=== PATIENT | female | born 1950 | race Caucasian/White ===

== ENCOUNTER → 2016-09-30 | Outpatient (CLI) | payer OTHER ==
[~2016-09-30] MED LIST: ACET-1256 PO; ACET-24 PO; ALPR-411 PO; ASPEC81 PO; BECL0.072 INH; CLB/200 PO; CLB200 PO; DICLOFENAC PO; FRRG PO; IBUP-1050 PO; LISI-729 PO; Levalbuterol INH; MISCCAP80 PO; MISOPROSTOL PO; MULT-506 PO; OMEP40CA36 PO; PRT40 PO; RXC5 PO; SERT100T PO; TRAM-10 PO; TURMERIC PO; XPNIN INH
--- NOTE | 2016-09-30 15:37 | MAMMOGRAPHY REPORT ---
BILATERAL DIGITAL SCREENING MAMMOGRAM WITH CAD: 09/30/2016 CLINICAL HISTORY: Routine screening. Patient has no complaints. TECHNIQUE: Bilateral CC and MLO views were obtained. Current study was also evaluated with a Comput er Aided Detection (CAD) system. COMPARISON: Comparison is made to exams dated: 02/01/2015 mammogram, 06/09/2012 mammogram, 09/13/2013 aspiration, 08/26/2013 mammogram, 05/14/2011 mammogram - [facility], and 02/03/2009. BREAST COMPOSITION: The tissue of both breasts is almost entirely fatty. FINDINGS: There are stable benign-appearing punctate and rim calcifications in the breasts. Stable 5 mm nodular asymmetry in the superior left breast. No new suspicious mass, architectural distortio n or cluster of microcalcifications is seen. IMPRESSION: ACR BI-RADS CATEGORY 1: NEGATIVE There is no mammographic evidence of malignancy. A 1 year screening mammogram is recommended. The p atient will receive written notification of the results. Approximately 10% of breast cancers are not detected with mammography. A negative mammographic repor t should not delay biopsy if a clinically suggestive mass is present. Jaymie Ross M.D. ay/:09/30/2016 14:14:36 Lacquer Machine Feeder: Reggie TREJO(Cait)(Sabrina), [facility] letter sent: Normal 1/2 BI-RADS Code: ACR BI-RADS Category 1: Negative
== END | disposition home or self-care (01) ==
LOC: C.MAMM 10:09
PROVIDERS: ATTEND Obstetrics & Gynecology
DX: Z12.31 Encounter for screening mammogram for malignant neoplasm of breast (principal)

== ENCOUNTER 2017-05-21 09:45 | Inpatient (IN) | payer OTHER ==
--- NOTE | 2017-04-22 13:54 | PAT Medication Instructions ---
Service Date Apr 22, 2017. Current Home Medication List Acetaminophen (Tylenol), 1,000 MG PO PRN Alprazolam (Xanax), 0.5 MG PO PRN Celecoxib (CeleBREX), 200 MG PO PRN Ibuprofen (Advil), 400 MG PO PRN Levalbuterol Tartrate (Xopenex Hfa), 1 PUFF INH Q4H PRN for wheeezing Lisinopril (Prinivil), 5 MG PO QAM Multivitamin (Multivitamin), 1 TAB PO for M Omeprazole (Prilosec), 40 MG PO QAM Probiotic Product (Probiotic), 2 TAB PO QAM Sertraline Hcl (Zoloft), 150 MG PO QAM [Diclofenac-Misopro], 1 TAB PO PRN [Turmeric], 1 TAB PO QAM Medication Instructions For Your Scheduled Surgery - Check with surgeon for instructions: [Diclofenac-Misopro], 1 TAB PO PRN Celecoxib (CeleBREX), 200 MG PO PRN Ibuprofen (Advil), 400 MG PO PRN - Hold the following medications 2 weeks prior to surgery: [Turmeric], 1 TAB PO QAM - Hold the following medications the morning of surgery: Lisinopril (Prinivil), 5 MG PO QAM Multivitamin (Multivitamin), 1 TAB PO for M Probiotic Product (Probiotic), 2 TAB PO QAM - Take the following medications the morning of surgery with a sip of water: Sertraline Hcl (Zoloft), 150 MG PO QAM Omeprazole (Prilosec), 40 MG PO QAM Levalbuterol Tartrate (Xopenex Hfa), 1 PUFF INH Q4H PRN for wheeezing (if needed ) Acetaminophen (Tylenol), 1,000 MG PO PRN (if needed) Alprazolam (Xanax), 0.5 MG PO PRN (if needed) - Take the following medications as scheduled the night before surgery: Levalbuterol Tartrate (Xopenex Hfa), 1 PUFF INH Q4H PRN for wheeezing (if needed) Acetaminophen (Tylenol), 1,000 MG PO PRN (if needed) Alprazolam (Xanax), 0.5 MG PO PRN (if needed) If you have any questions please call us at [phone] or [phone] or [phone]
[2017-04-22 14:16] LABS: BASO % 0.3 %; BASO ABS # 0.02 K/uL (0-0.2); COMPLETE YES; EOS % 1.5 %; HEMATOCRIT 42.4 % (37-47); IG% 0.6 %; LYMPH % 24.3 %; LYMPH ABS # 1.75 K/uL (1.2-3.4); MEAN CELL VOLUME 91.6 fL (80-100); MEAN CORPUSCULAR HEMOGLOBIN 30.9 pg (25-34); MEAN CORPUSCULAR HGB CONC 33.7 g/dl (32-36); MEAN PLATELET VOLUME 9.9 fL (7.4-10.4); NEUT % 67.3 %; PLATELET COUNT 274 K/uL (130-400); RED BLOOD COUNT 4.63 M/uL (4.2-5.4); WHITE BLOOD COUNT 7.21 K/uL (4.8-10.8)
[2017-04-22 14:20] LABS: URINE APPEARANCE CLEAR (CLEAR); URINE BILIRUBIN NEG (NEG); URINE COLOR YELLOW; URINE NITRITE NEG (NEG); URINE SPECIFIC GRAVITY 1.015 (1.000-1.030); UROBILINOGEN NEG (NEG); ZZUR CULT IF INDIC CLEAN CATCH NO
[2017-04-22 14:21] LABS: MANUAL MICROSCOPIC REQUIRED? NO; REVIEW REQ? NO
--- NOTE | 2017-04-22 14:23 | DIAGNOSTIC IMAGING REPORT ---
CHEST 2 VIEWS ROUTINE CLINICAL HISTORY: 66 years-old Female presenting with preadmission chest x-ray. TECHNIQUE: PA and lateral views of the chest were obtained. COMPARISON: 11/09/2012. FINDINGS: Cardiomediastinal silhouette normal. Lungs and pleural spaces clear. Osseous structures normal. Upper abdomen normal. IMPRESSION: 1. No acute cardiopulmonary disease. Electronically signed by: Boston Castro M.D. 04/22/2017 2:21 PM Dictated Date/Time: 04/22/2017 2:21 PM
[2017-04-22 14:30] LABS: PROTHROMBIN TIME (PATIENT) 10.7 SECONDS (9.0-12.0)
[2017-04-22 15:11] LABS: BUN/CREATININE RATIO 14.8 (10-20); CALCIUM 9.1 mg/dl (8.5-10.1); CREATININE 0.88 mg/dl (0.60-1.20); POTASSIUM 4.7 mmol/L (3.5-5.1)
[2017-04-23 07:33] LABS: ESTIMATED AVERAGE GLUCOSE 114 mg/dl; HA1C FLAG Normal (Normal)
--- NOTE | 2017-05-20 17:17 | HISTORY & PHYSICAL EXAMINATION ---
DATE OF ADMISSION: 05/21/2017 CHIEF COMPLAINT: Chronic left knee pain. HISTORY OF PRESENT ILLNESS: This is a 67-year-old female patient of Dr. Castro, complaining of chronic left knee pain, longstanding, now progressively getting worse. The patient has been diagnosed with end-stage osteoarthritis per clinical and radiographic exams. The patient has failed conservative treatment including anti-inflammatories, physical therapy, and intra-articular injections. The patient has increased pain with weightbearing activities and her pain does interfere with her activities of daily living. PAST MEDICAL HISTORY: Heart murmur, hypertension, hypercholesterolemia, irregular heartbeat, asthma, sleep apnea, anxiety, osteoarthritis, spine problems, neck problems, sciatica, acid reflux, obesity, and dental issues. She has a history of cervical and skin cancer. SOCIAL HISTORY: Half pack per day smoker for a lifelong 20 years, currently not smoking for 20 yrs. Alcohol, none. PAST SURGICAL HISTORY: Hysterectomy and gallbladder. MEDICATIONS: 1. Lisinopril 5 mg daily. 2. Zoloft 100 mg daily. 3. Prilosec 20 mg daily. 4. Levalbuterol 45 mcg per actuation 2 puffs p.r.n. for shortness of breath. 5. Xanax 0.5 mg as needed. 6. QVAR 40 mcg actuation inhaler b.i.d. as needed. 7. Multivitamin daily. 8. Probiotic daily. 9. Turmeric daily. 10. [place] 3 daily. ALLERGIES: No known drug allergies. PHYSICAL EXAMINATION: GENERAL: Well-developed and well-nourished 67-year-old female in no acute distress. She is alert and oriented x3 and pleasant. HEENT: Normocephalic, atraumatic. Extraocular motions are intact. Pupils are equal and reactive to light. HEART: Regular rate and rhythm with a 1/6 murmur appreciated. LUNGS: Clear. ABDOMEN: Soft and nontender. Bowel sounds present. EXTREMITIES: Left knee reveals positive crepitation with range of motion, limited range of motion of 0-125 degrees. She has a mild effusion. She has 5/5 strength. NEUROLOGIC: Neurovascularly, she is intact in her left lower extremity with medial joint line tenderness. DIAGNOSES: Left knee end-stage osteoarthritis. She has also a history of heart murmur, hypertension, hypercholesterolemia, irregular heartbeat, asthma, sleep apnea, anxiety, osteoarthritis, spine problems, neck problems, sciatica, acid reflux, obesity, dental issues, and a history of cervical and skin cancer. PLAN: The patient was advised of her diagnoses. Indications, risks, benefits, and postop course have all been reviewed. The patient wishes to proceed with a left total knee arthroplasty. Necessary consent forms, preoperative testing and clearances will be obtained. ANDREZ
[~2017-05-21] VITALS: Ht 162.6 cm; Wt 71.9 kg
[2017-05-21] VITALS (7 sets, daily range): BP systolic 113–155; BP diastolic 71–95; PULSE 77–90; TEMP 36.3–37.1; O2SAT 93–97; Ht 162.6 cm; Wt 71.9 kg
[~2017-05-21 09:45] MED LIST changes: -ACET-24 PO; +ACETAMINOPHEN 500 MG TAB PO SCH; -ASPEC81 PO; -BECL0.072 INH; +BUPIVACAINE 0.25% 30 ML VIAL ONE; +BUPIVACAINE 0.5 % 5 MG/1 ML PF 10ML VIAL ONE; +CEFAZOLIN 2000 MG/60 ML D5W 60 ML IV SCH; -CLB200 PO; +CeleBREX 200 MG CAP PO SCH; +DEXAMETHASONE 4 MG TAB PO SCH; +FAMOTIDINE 20 MG TAB PO SCH; -FRRG PO; +GABAPENTIN 300 MG CAP PO SCH; +LACTATED RINGER'S 1000ML 1,000 ML IV SCH; +LACTATED RINGER'S 1000ML 500 ML IV ONE; +LACTATED RINGER'S 1000ML IV SCH; -Levalbuterol INH; +METOCLOPRAMIDE HCL 10 MG TAB PO SCH; -PRT40 PO; +ROPIVACAINE 5MG/ML 30 ML 150 MG, BUPIVACAINE/EPINEPHR 0.5% MPF 30 ML, KETOROLAC TROMETH... INFIL SCH; -RXC5 PO; -TRAM-10 PO
[2017-05-21] MEDS ORDERED: FENTANYL CITRATE INJ 50 MCG/1 ML 2 ML VIAL ONE (11:09)
[2017-05-21] MEDS ORDERED: MIDAZOLAM HCL 1 MG/ML 2ML VIAL ONE ×2 (11:09→13:24)
[2017-05-21] MEDS ORDERED: ATROPINE SULFATE 0.1 MG/ML 5ML SYR IV PRN (11:15)
[2017-05-21] MEDS ORDERED: ONDANSETRON INJ 2 MG/ML 2 ML VIAL IV PRN ×2 (11:15→15:30)
[2017-05-21] MEDS ORDERED: FENTANYL CITRATE INJ 50 MCG/1 ML 2 ML VIAL IV PRN (11:15)
[2017-05-21] MEDS ORDERED: EpHEDrine SULFATE INJ 50 MG/ML AMP IV PRN (11:15)
--- NOTE | 2017-05-21 11:41 | History & Physical Bridge Note ---
H&P Re-Evaluation Bridge Note: I have examined the patient, reviewed the History & Physical and in the interval since the performance of the History & Physical I have noted the following changes of clinical significance: No changes noted
[2017-05-21] MEDS ORDERED: POVIDONE-IODINE OP SOLN 30 ML BTL ONE (12:01)
[2017-05-21] MEDS ORDERED: ORTHO JOINT ANESTHETIC ONE (12:01)
[2017-05-21] MEDS ORDERED: BACITRACIN 50000 UNIT VIAL ONE (12:01)
[2017-05-21] MEDS ORDERED: PROPOFOL IV EMULSION 10 MG/ML 20 ML VIAL IV ONE ×2 (13:24→14:11)
[2017-05-21] MEDS ORDERED: ONDANSETRON INJ 2 MG/ML 2 ML VIAL ONE (13:24)
[2017-05-21] MEDS ORDERED: LIDOCAINE HCL 2% 2 ML VIAL (20MG/ML) ONE (13:24)
--- NOTE | 2017-05-21 14:52 | [facility] Post Operative Brief Note ---
Immediate Operative Summary Operative Date May 21, 2017. Pre-Operative Diagnosis Left knee end-stage osteoarthritis Post-Operative Diagnosis Left knee end-stage osteoarthritis Procedure(s) Performed Left total knee arthroplasty, cemented Surgeon Dr. Castro Network Developer Surgeon(s) Ventura Toro PA-C Estimated Blood Loss 5 mL Findings medial compartment and patellofemoral djd grade 4.varus. Specimens A: Left knee bone and tissue Drains 2 hemovac Anesthesia spinal adductor block orthomix Complication(s) None Disposition Recovery Room / PACU
[2017-05-21] MEDS ORDERED: LEValbuterol HFA 15GM INHALER INH PRN (15:30)
[2017-05-21] MEDS ORDERED: ALUMINUM/MAGNESIUM/SIMETH (MAALOX MAX) 30 ML UDC PO PRN (15:30)
[2017-05-21] MEDS ORDERED: BISACODYL 10 MG SUPP PR PRN (15:30)
[2017-05-21] MEDS ORDERED: TRAMADOL HCL 50 MG TAB PO PRN (15:30)
[2017-05-21] MEDS ORDERED: MAGNESIUM HYDROXIDE SUSP 30 ML UDC PO PRN (15:30)
[2017-05-21] MEDS ORDERED: MoRPHine SULFATE 2 MG/ML CARP IV PRN (15:30)
[2017-05-21] MEDS ORDERED: MoRPHine SULFATE 4 MG/ML 1 ML CARP\\VIAL IV PRN (15:30)
[2017-05-21] MEDS ORDERED: ALPRAZOLAM 0.5 MG TAB PO PRN (15:30)
--- NOTE | 2017-05-21 15:48 | Anesthesiology Progress Note ---
Anesthesia Post Op Note Date & Time May 21, 2017 at 15:48 Vital Signs Pain Intensity: 0 Vital Signs Past 12 Hours Date Time Temp Pulse Resp B/P (MAP) Pulse Ox O2 Delivery O2 Flow Rate FiO2 05/21/17 15:35 87 18 128/86 97 Oxymask 3 05/21/17 15:25 36.5 100 16 131/82 96 Oxymask 5 05/21/17 10:06 36.9 90 16 155/95 96 Room Air Notes Mental Status: alert / awake / arousable, participated in evaluation Pt Amnestic to Procedure: Yes Nausea / Vomiting: adequately controlled Pain: adequately controlled Airway Patency, RR, SpO2: stable & adequate BP & HR: stable & adequate Hydration State: stable & adequate Neuraxial Anesthesia: was administered, sensory block is resolving Anesthetic Complications: no major complications apparent
--- NOTE | 2017-05-21 16:09 | DIAGNOSTIC IMAGING REPORT ---
L KNEE 1 OR 2 VIEWS ROUTINE CLINICAL HISTORY: AP/LATERAL IN PACU LEFT KNEE COMPARISON: None. DISCUSSION: Anatomic alignment status post total left knee replacement. Good contact between prosthetic and underlying bone. Soft tissue postoperative change is within normal limits. IMPRESSION: Anatomic alignment status post total left knee replacement. The above report was generated using voice recognition software. It may contain grammatical, syntax or spelling errors. Electronically signed by: Ricardo Cochran M.D. 05/21/2017 4:08 PM Dictated Date/Time: 05/21/2017 4:07 PM
[2017-05-21] MEDS ORDERED: TRAM-10 PO (16:41)
[2017-05-21] MEDS ORDERED: COUGH DROP (SUGAR FREE) LOZ 24 LOZ/1 BOX PO PRN (16:45)
[2017-05-21] MEDS: TRANEXAMIC ACID INJ 1,000 MG in SODIUM CHLORIDE 0.9% 100ML 100 ML IV SCH ×2 (16:53→16:54)
--- NOTE | 2017-05-21 16:59 | Medical Consult ---
Consultation Date of Consultation: May 21, 2017. Attending Physician: Neal Castro M.D. Reason for Consultation: postop medical management History of Present Illness Patient seen and examined after undergoing L TKA today by Dr. Castro. She is doing well, only complains of sore throat after procedure. Not having postop pain yet. Sensory block is still in effect. Denies dizziness, chest pain, SOB, wheezing, cough, N/V. Did not void yet after procedure. Last BM was yesterday. Past Medical/Surgical History Medical Problems: (1) Asthma Status: Chronic (2) Basal cell carcinoma of nose Permanent Comment: required Rx in past, but not recently Status: Resolved (3) Carcinoma of cervix Status: Resolved (4) Essential hypertension Status: Resolved (5) Gastroesophageal reflux disease Status: Chronic (6) Helicobacter pylori gastrointestinal tract infection Status: Resolved (7) s/p cholecystectomy Status: Resolved (8) s/p colonoscopy Status: Resolved (9) s/p EGD Status: Resolved (10) s/p hysterectomy Status: Resolved (11) s/p tonsillectomy Status: Resolved Family History FH: lung cancer MOTHER SISTER Social History Smoking Status: Former Smoker (quit in 1992, prior 1/2 ppd x 15 years) Alcohol Use: occasionally Marital Status: single Housing Status: lives alone Allergies Coded Allergies: No Known Allergies (Unverified , 05/21/17) Home Medications Active Reported Ultram (Tramadol HCl) 50 Mg Tab 50 Mg PO Q6H PRN CeleBREX (Celecoxib) 200 Mg Cap 200 Mg PO PRN Advil (Ibuprofen) 200 Mg Tab 400 Mg PO PRN Tylenol (Acetaminophen) 500 Mg Tab 1,000 Mg PO PRN [Turmeric] 1 Tab PO QAM Probiotic (Probiotic Product) 1 Cap Cap 2 Tab PO QAM Multivitamin (Multivitamins) Tab 1 Tab PO DAILY [Diclofenac-Misopro] 1 Tab PO PRN DICLOFENAC-MISOPROSTOL 75-0.2 MG Prinivil (Lisinopril) 5 Mg Tab 5 Mg PO QAM Xopenex Hfa (Levalbuterol Tartrate) Aer 1 Puff INH Q4H PRN Prilosec (Omeprazole) 40 Mg Cap 40 Mg PO QAM Zoloft (Sertraline Hcl) 100 Mg Tab 150 Mg PO QAM Xanax (Alprazolam) 0.5 Mg Tab 0.5 Mg PO DAILY PRN Current Inpatient Medications Current Inpatient Medications Medications (Trade) Dose Ordered Sig/Rupali Route Start Time Stop Time Status Last Admin Dose Admin Lactated Ringer's 1,000 ml @ 60 mls/hr [id number] IV 05/21/17 06:00 05/21/17 22:39 05/21/17 10:23 60 MLS/HR Cefazolin Sodium 60 ml @ 100 mls/hr PREOP IV 05/21/17 06:00 05/21/17 18:00 05/21/17 13:16 100 MLS/HR Acetaminophen (Tylenol Tab) 1,000 mg PREOP PO 05/21/17 06:00 05/21/17 18:00 05/21/17 10:25 1,000 MG Celecoxib (CeleBREX CAP) 200 mg PREOP PO 05/21/17 06:00 05/21/17 18:00 05/21/17 10:25 200 MG Dexamethasone (Decadron Tab) 8 mg PREOP PO 05/21/17 06:00 05/21/17 18:00 05/21/17 10:24 8 MG Famotidine (Pepcid Tab) 20 mg PREOP PO 05/21/17 06:00 05/21/17 18:00 05/21/17 10:26 20 MG Gabapentin (Neurontin Cap) 300 mg PREOP PO 05/21/17 06:00 05/21/17 18:00 05/21/17 10:24 300 MG Metoclopramide HCl (Reglan Tab) 10 mg PREOP PO 05/21/17 06:00 05/21/17 18:00 05/21/17 10:24 10 MG Tranexamic Acid 1000 mg/Sodium Chloride 110 ml @ 660 mls/hr TODAY@06,0630 IV 05/21/17 06:00 05/21/17 18:00 Lactated Ringer's 1,000 ml @ 15 mls/hr Q24H IV 05/21/17 06:00 05/22/17 05:59 Alprazolam (Xanax Tab) 0.5 mg TID PRN PO 05/21/17 15:30 06/20/17 15:29 UNV Levalbuterol (Xopenex Hfa Inhaler) 1 puffs Q4H PRN INH 05/21/17 15:30 06/20/17 15:29 UNV Lisinopril (Zestril Tab) 5 mg QAM PO 05/22/17 09:00 06/21/17 08:59 UNV Sertraline HCl (Zoloft Tab) 150 mg QAM PO 05/22/17 09:00 06/21/17 08:59 UNV Non-Formulary Medication (Probiotic Product (Probiotic)) 2 tab QAM PO 05/22/17 09:00 06/21/17 08:59 UNV Morphine Sulfate (MoRPHine SULFATE INJ) 2 mg Q4HWA PRN IV 05/21/17 15:30 06/04/17 15:29 UNV Morphine Sulfate (MoRPHine SULFATE INJ) 4 mg Q4HWA PRN IV 05/21/17 15:30 06/04/17 15:29 UNV Potassium Chloride/Dextrose/ Sod Cl 1,000 ml @ 100 mls/hr Q10H IV 05/21/17 15:26 05/22/17 15:25 UNV Cefazolin Sodium 2000 mg/Dextrose 60 ml @ 100 mls/hr Q8H IV 05/21/17 15:30 05/22/17 00:05 UNV Celecoxib (CeleBREX CAP) 200 mg BID PO 05/21/17 21:00 06/20/17 20:59 UNV Oxycodone HCl (Roxicodone Immediate Rel Tab) 1 TABLET FOR PAIN RATING... Q4H PRN PO 05/21/17 15:30 06/04/17 15:29 UNV Acetaminophen (Tylenol Tab) 1,000 mg Q8H PO 05/21/17 15:30 06/20/17 15:29 UNV Magnesium Hydroxide (Milk Of Magnesia Susp) 30 ml Q6H PRN PO 05/21/17 15:30 06/20/17 15:29 UNV Bisacodyl (Dulcolax Supp) 10 mg DAILY PRN GA 05/21/17 15:30 06/20/17 15:29 UNV Senna (Senokot Tab) 17.2 mg HS PO 05/21/17 21:00 06/20/17 20:59 UNV Docusate Sodium (coLACE CAP) 100 mg BID PO 05/21/17 21:00 06/20/17 20:59 UNV Al Hydrox/Mg Hydrox/Simethicone (Maalox Max Susp) 15 ml Q4H PRN PO 05/21/17 15:30 06/20/17 15:29 UNV Multivitamins (Multivitamin Tab) 1 tab QAM PO 05/22/17 09:00 06/21/17 08:59 UNV Ondansetron HCl (Zofran Inj) 4 mg Q6H PRN IV 05/21/17 15:30 06/20/17 15:29 UNV Ferrous Gluconate (Ferrous Gluconate Tab) 324 mg TIDM PO 05/21/17 17:45 06/20/17 17:59 UNV Pantoprazole Sodium (Protonix Tab) 40 mg QAM PO 05/22/17 09:00 06/21/17 08:59 UNV Tramadol HCl (Ultram Tab) 1 tablet for pain rating... Q4H PRN PO 05/21/17 15:30 06/20/17 15:29 UNV Aspirin (Ecotrin Tab) 81 mg BID PO 05/21/17 21:00 06/20/17 20:59 UNV Review of Systems Ten systems reviewed and negative except as noted in HPI. Physical Exam Date Time Temp Pulse Resp B/P (MAP) Pulse Ox O2 Delivery O2 Flow Rate FiO2 05/21/17 16:40 36.7 77 16 116/78 (91) 96 Nasal Cannula 2.0 05/21/17 15:55 80 16 133/81 98 Nasal Cannula 2 05/21/17 15:45 85 18 118/75 97 Nasal Cannula 2 05/21/17 15:35 87 18 128/86 97 Oxymask 3 05/21/17 15:25 36.5 100 16 131/82 96 Oxymask 5 05/21/17 10:06 36.9 90 16 155/95 96 Room Air General Appearance: WD/WN, no apparent distress, + pertinent finding (pleasant cooperative 67 y/o female, lying in bed, daughter at bedside) Head: normocephalic, atraumatic Eyes: normal inspection, PERRL ENT: hearing grossly normal, pharynx normal Neck: supple, trachea midline Respiratory/Chest: lungs clear, normal breath sounds, no respiratory distress, no accessory muscle use Cardiovascular: regular rate, rhythm, no murmur Abdomen/GI: normal bowel sounds, non tender, soft Extremities/Musculoskelatal: + pertinent finding (left knee wrapped with ice pack in place s/p left TKA, Hemovac drain with sanguinous drainage) Neurologic/Psych: alert, normal mood/affect, oriented x 3, + pertinent finding (decreased sensation in left foot due to sensory block) Skin: normal color, warm/dry Assessment & Plan S/P LEFT TKA POD #[address] Castro Pain control, wound care, activity per ortho Continue incentive spirometry Monitor daily H/H for sign of acute blood loss anemia PT, OT Cepacol lozenges PRN for throat irritation post-intubation HYPERTENSION BP stable Continue lisinopril ASTHMA Not in exacerbation Continue home inhaler DEPRESSION/ ANXIETY Continue Zoloft, Xanax PRN GERD Continue PPI DVT PROPHYLAXIS Per ortho DISPOSITION Per ortho Patient seen in collaboration with Dr. Sheppard. Please see his addendum. Agree with above consult note. 67f s/p left TKA. tolerated procedure fine. Resting comfortably. Hemodynamically stable. denies chest pain or sob. No nausea. Afebrile. p/e Ge not in distress Cvs s 1 and s2 heard no murmurs Rs cta b/l no added sounds Abd benign Voice Studies Director non focal Ext s/p Left TKA-in dressing a/p s/p Left TKA management as per ortho HTN home meds will monitor
[2017-05-21] MEDS: D5W AND 1/2NSS + 20MEQ KCL 1,000 ML IV SCH (17:39)
[2017-05-21] MEDS: FERROUS GLUCONATE 324 MG TAB PO SCH (18:13)
[2017-05-21] MEDS: ASPIRIN 81 MG ECTAB PO SCH (20:59)
[2017-05-21] MEDS: SENNA 8.6 MG TAB PO SCH (20:59)
[2017-05-21] MEDS: CeleBREX 200 MG CAP PO SCH (20:59)
[2017-05-21] MEDS: DOCUSATE SODIUM 100 MG CAP PO SCH (20:59)
[2017-05-21] MEDS: CEFAZOLIN IV 2,000 MG in DEXTROSE 5% 50ML 50 ML IV SCH (21:55)
[2017-05-21] MEDS: ACETAMINOPHEN 500 MG TAB PO SCH (21:55)
--- NOTE | 2017-05-22 00:38 | OPERATIVE REPORT ---
DATE OF OPERATION: 05/21/2017 INDICATION FOR PROCEDURE: A 67-year-old female with chronic bilateral knee pain. She failed conservative management including injections. Radiographs of the left knee demonstrate she has a varus knee, [id number] in the medial compartment. She also has patellofemoral arthritis. PREOPERATIVE DIAGNOSIS: End-stage osteoarthritis, left knee. POSTOPERATIVE DIAGNOSIS: Same. PROCEDURE: Left total knee arthroplasty. SURGEON: Dr. Castro. TEACHERS AIDE: WARREN Roldan. ANESTHESIA: Spinal sedation, Orthomix and adductor nerve block. OPERATIVE PROCEDURE: The patient was taken to operating room and anesthetized under anesthesia as dictated. She was placed supine on the operating room table. Pneumatic tourniquet was placed on the left upper thigh. Left lower extremity was prepped and draped in sterile fashion. Examination demonstrates she had a good range of motion and a varus knee. Her left lower extremity was sterilely prepped and draped with ChloraPrep. Leg was elevated, exsanguinated with Esmarch bandage. Pneumatic tourniquet was raised to 300 mmHg. An anterior longitudinal incision was made across the left knee. Skin was incised sharply. Subcutaneous flaps were elevated. Incision was made through the medial retinaculum, extending up in the mid-third of the quadriceps tendon and extended down to the medial tibial tubercle. Intraarticular findings demonstrated [id number] in the medial compartment anteromedial exposed bone on the tibia and a typical femoral condylar exposed bone. She also had grade 4 DJD in the medial patellofemoral joint. I used the [employer] Journey 2.0 total knee arthroplasty system using [employer] MRI templating. She was sized for a 4 femur, 3 tibia. To expose the knee, the infrapatellar fat pad was excised. The fat pad over the anterior femur for placement of the component in that area was resected. The meniscal remnants were resected and the cruciate ligaments were resected. She had balanced ligaments and no particular releases were required. The femur was exposed. The custom femoral cutting block was pinned in position and distal femoral cut was made. Then the 5-1 cutting block for the 4 femur was placed. Anterior, posterior and chamfer cuts were made. The knee was extended and the subperiosteal peel lateral release was performed around the patella. Width was measured and the width was reproduced using a freehand cut technique and a 32 patellar component. Drill holes were made for the patella and the excess lateral facet was beveled off to prevent any impingement. The drill holes for the patella were made. The tibia was then exposed. The custom tibial cutting block was pinned in position and the proximal tibial cut was made with an oscillating saw. We assessed ligaments balance in extension and flexion, using the lamina control systems specialist and ligaments were balanced. With the tibia re-exposed, the size 3 tibial baseplate was externally rotated in line with the tibial tubercle, pinned in position and then a punch for the stem was used. The 4 femoral trial was inserted, centered and the notch cutting devices were used. A collet was placed and an 11 poly insert trial gave balanced ligaments through full range of motion, patella tracked centrally. Trials were removed. The Orthomix anesthetic cocktail was injected per protocol. The knee was copiously irrigated with pulsatile lavage antibiotic solution and bacitracin. Final components were cemented with Simplex G cement. Final components were the 4 Oxinium posterior stabilized [employer] Journey 2.0, 4 femur component, the primary 3 baseplate, the 11 mm high flex posterior stabilized poly insert and the 32 patella domed component. All cement cured, the Betadine soak was used per protocol. The knee was copiously irrigated with antibiotic solution with bacitracin after cement cured. Two drains were brought out laterally. The quadriceps tendon and medial retinaculum were closed with interrupted [id number] #1 Vicryl sutures. The subcutaneous tissues were closed with V-Loc suture and skin closed with Dermabond using the Prineo skin closure system. The typical sterile dressings were applied and the patient tolerated the procedure well. WARREN Roldan, was my first sampler and he functioned as first sampler for the entire procedure. He assisted in patient prepping, draping, leg positioning, instrument management, soft tissue retraction during the procedure and he performed the fascial, subcutaneous and skin closure and will participate in postoperative care of the patient. I attest to the content of the Intraoperative Record and any orders documented therein. Any exceptions are noted below. ANDREZ
[2017-05-22] MEDS: D5W AND 1/2NSS + 20MEQ KCL 1,000 ML IV SCH ×2 (01:49→12:48)
[2017-05-22 03:11] VITALS: BP 113/69; PULSE 78; TEMP 36.5; O2SAT 96
[2017-05-22] MEDS: ACETAMINOPHEN 500 MG TAB PO SCH ×3 (05:38→21:31)
[2017-05-22] MEDS: CEFAZOLIN IV 2,000 MG in DEXTROSE 5% 50ML 50 ML IV SCH (05:38)
[2017-05-22 07:25] VITALS: BP 129/85; PULSE 70; TEMP 36.5; O2SAT 97
[2017-05-22] MEDS: OXYCODONE HCL IR 5 MG TAB (IMMEDIATE RELEASE) PO PRN ×3 (07:29→20:56)
--- NOTE | 2017-05-22 08:08 | Orthopedic Progress Note ---
Orthopedic Progress Note Date of Service May 22, 2017. Subjective Post OP Day: 1 Reports: feeling well, pain controlled w PO medications, Denies: complaints, chest pain, SOB, nausea / vomiting, light headedness, calf pain Additional Notes: AM labs pending Objective calves soft nontender, N/V intact, capillary refill less than 2 sec., dressing C /D/I, A&O x3, toes mobile Date Time Temp Pulse Resp B/P (MAP) Pulse Ox O2 Delivery O2 Flow Rate FiO2 05/22/17 07:25 Room Air 05/22/17 03:11 36.5 78 16 113/69 (84) 96 Room Air 05/21/17 23:50 Room Air 05/21/17 23:06 36.4 84 16 113/71 (85) 95 Room Air 05/21/17 19:02 36.3 87 16 131/86 (101) 93 Room Air 05/21/17 18:12 37.1 86 16 126/78 (94) 96 Room Air 05/21/17 17:08 36.7 77 16 121/80 (94) 97 Nasal Cannula 2.0 05/21/17 16:40 36.7 77 16 116/78 (91) 96 Nasal Cannula 2.0 05/21/17 16:05 36.8 83 16 131/82 (98) 93 Nasal Cannula 2.0 05/21/17 16:05 93 Nasal Cannula 2.0 05/21/17 16:05 93 Nasal Cannula 2.0 05/21/17 15:55 80 16 133/81 98 Nasal Cannula 2 05/21/17 15:45 85 18 118/75 97 Nasal Cannula 2 05/21/17 15:35 87 18 128/86 97 Oxymask 3 05/21/17 15:25 36.5 100 16 131/82 96 Oxymask 5 05/21/17 10:06 36.9 90 16 155/95 96 Room Air Laboratory Results 24 Hours: Test 05/22/17 07:34 Assessment & Plan Assessment: POD #1, Left TKA Inhouse Planning Pain Management: Celebrex, Ultram, Morphine, PO Tylenol, Oxy IR DVT Prophylaxis: TEDs, SCDs, ASA Discharge Planning Discharge Planning: rehab hospital Pain Management: Celebrex, PO Tylenol, Oxy IR DVT Prophylaxis: TEDs, ASA Therapy: Physical Therapy, Occupational Therapy
[2017-05-22 08:23] LABS: HEMATOCRIT 36.7 % (37-47); MEAN CELL VOLUME 92.2 fL (80-100); MEAN CORPUSCULAR HEMOGLOBIN 29.4 pg (25-34); MEAN CORPUSCULAR HGB CONC 31.9 g/dl (32-36); MEAN PLATELET VOLUME 10.1 fL (7.4-10.4); PLATELET COUNT 266 K/uL (130-400); RED BLOOD COUNT 3.98 M/uL (4.2-5.4); WHITE BLOOD COUNT 15.92 K/uL (4.8-10.8)
[2017-05-22 08:58] LABS: CREATININE 0.81 mg/dl (0.60-1.20)
[2017-05-22 08:59] LABS: BUN/CREATININE RATIO 16.4 (10-20); CALCIUM 8.6 mg/dl (8.5-10.1); POTASSIUM 4.3 mmol/L (3.5-5.1)
[2017-05-22] MEDS: FERROUS GLUCONATE 324 MG TAB PO SCH ×3 (09:00→17:47)
[2017-05-22] MEDS: DOCUSATE SODIUM 100 MG CAP PO SCH ×2 (09:01→20:55)
[2017-05-22] MEDS: ASPIRIN 81 MG ECTAB PO SCH ×2 (09:01→20:56)
[2017-05-22] MEDS: CeleBREX 200 MG CAP PO SCH ×2 (09:01→20:55)
[2017-05-22] MEDS: LACTOBACILLUS ACIDOPHILUS (FLORANEX) TAB PO SCH (09:01)
[2017-05-22] MEDS: PANTOprazole SOD 40 MG TAB PO SCH (09:02)
[2017-05-22] MEDS: MULTIVITAMIN TAB PO SCH (09:02)
[2017-05-22] MEDS: LISINOPRIL 5 MG TAB PO SCH (09:03)
[2017-05-22] MEDS: SERTRALINE HCL 50 MG TAB PO SCH (09:03)
[2017-05-22 11:29] VITALS: BP 112/77; PULSE 74; TEMP 36.7; O2SAT 93
--- NOTE | 2017-05-22 12:16 | Anesthesiology Progress Note ---
Anesthesia Post Op Note Date & Time May 22, 2017 at 12:15 Vital Signs Pain Intensity: 3.0 Vital Signs Past 12 Hours Date Time Temp Pulse Resp B/P (MAP) Pulse Ox O2 Delivery O2 Flow Rate FiO2 05/22/17 11:29 36.7 74 16 112/77 (89) 93 Room Air 05/22/17 07:25 Room Air 05/22/17 07:25 36.5 70 16 129/85 (100) 97 Room Air 05/22/17 03:11 36.5 78 16 113/69 (84) 96 Room Air Notes Mental Status: alert / awake / arousable, participated in evaluation Pt Amnestic to Procedure: Yes Nausea / Vomiting: adequately controlled Pain: adequately controlled Airway Patency, RR, SpO2: stable & adequate BP & HR: stable & adequate Hydration State: stable & adequate Neuraxial Anesthesia: was administered, sensory block resolved Anesthetic Complications: no major complications apparent
[2017-05-22 15:16] VITALS: BP 112/75; PULSE 73; TEMP 36.7; O2SAT 95
--- NOTE | 2017-05-22 20:05 | Progress Note ---
Internal Med Progress Note Date of Service: May 22, 2017. Provider Documentation: SUBJECTIVE: sitting on the chair comfortably and eating lunch had therapy today denies any pain no sob afebrile OBJECTIVE: Vital Signs-as noted below Exam: General-alert and awake. not in distress ENT-normal hearing Neck-no neck masses supple Lungs-cta b/l no wheezing or crackles Heart-s1 and s2 heard regular rate and rhythm no murmurs Abdomen-soft bowel sounds present non tender no distension Extremities-no erythema s/p left TKA Neuro-alert and awake moves extremities Lab data as noted below. ASSESSMENT & PLAN: S/P LEFT TKA POD #01by Dr. Castro post op management as per ortho. HYPERTENSION BP stable on lisinopril will monitor ASTHMA stable on home inhaler DEPRESSION/ ANXIETY stable on Zoloft, Xanax PRN GERD on PPI DVT PROPHYLAXIS Per ortho DISPOSITION per ortho Vital Signs: Date Time Temp Pulse Resp B/P (MAP) Pulse Ox O2 Delivery O2 Flow Rate FiO2 05/22/17 15:16 36.7 73 16 112/75 (87) 95 Room Air 05/22/17 15:10 Room Air 05/22/17 11:29 36.7 74 16 112/77 (89) 93 Room Air 05/22/17 07:25 Room Air 05/22/17 07:25 36.5 70 16 129/85 (100) 97 Room Air 05/22/17 03:11 36.5 78 16 113/69 (84) 96 Room Air 05/21/17 23:50 Room Air 05/21/17 23:06 36.4 84 16 113/71 (85) 95 Room Air Lab Results: Results Past 24 Hours Test 05/22/17 07:34 Range/Units White Blood Count 15.92 4.8-10.8 K/uL Red Blood Count 3.98 4.2-5.4 M/uL Hemoglobin 11.7 12.0-16.0 g/dL Hematocrit 36.7 37-47 % Mean Corpuscular Volume 92.2 80-100 fL Mean Corpuscular Hemoglobin 29.4 25-34 pg Mean Corpuscular Hemoglobin Concent 31.9 32-36 g/dl RDW Standard Deviation 45.9 36.4-46.3 fL RDW Coefficient of Variation 13.6 11.5-14.5 % Platelet Count 266 130-400 K/uL Mean Platelet Volume 10.1 7.4-10.4 fL Sodium Level 139 136-145 mmol/L Potassium Level 4.3 3.5-5.1 mmol/L Chloride Level 106 98-107 mmol/L Carbon Dioxide Level 24 21-32 mmol/L Anion Gap 9.0 3-11 mmol/L Blood Urea Nitrogen 13 7-18 mg/dl Creatinine 0.81 0.60-1.20 mg/dl Est Creatinine Clear Calc Drug Dose 63.7 ml/min Estimated GFR () 85.9 Estimated GFR (Non- 74.1 BUN/Creatinine Ratio 16.4 10-20 Random Glucose 120 70-99 mg/dl Calcium Level 8.6 8.5-10.1 mg/dl Hepatitis C Antibody Screen NEG NEG
[2017-05-22] MEDS: SENNA 8.6 MG TAB PO SCH (20:55)
[2017-05-22 23:26] VITALS: BP 128/79; PULSE 71; TEMP 36.6; O2SAT 95
[2017-05-23] MEDS: ACETAMINOPHEN 500 MG TAB PO SCH ×3 (05:47→22:24)
[2017-05-23] MEDS: OXYCODONE HCL IR 5 MG TAB (IMMEDIATE RELEASE) PO PRN ×3 (07:11→20:42)
--- NOTE | 2017-05-23 07:43 | Orthopedic Progress Note ---
Orthopedic Progress Note Date of Service May 23, 2017. Subjective Post OP Day: 2 Reports: feeling well, pain controlled w PO medications, Denies: complaints, chest pain, SOB, nausea / vomiting, light headedness, calf pain Objective calves soft nontender, N/V intact, capillary refill less than 2 sec., incision C /D/I, A&O x3, toes mobile Glue/ mesh in tact, skin edges approx well. Date Time Temp Pulse Resp B/P (MAP) Pulse Ox O2 Delivery O2 Flow Rate FiO2 05/23/17 07:25 Room Air 05/23/17 00:15 Room Air 05/22/17 23:26 36.6 71 16 128/79 (95) 95 Room Air 05/22/17 15:16 36.7 73 16 112/75 (87) 95 Room Air 05/22/17 15:10 Room Air 05/22/17 11:29 36.7 74 16 112/77 (89) 93 Room Air Assessment & Plan Assessment: POD #2, Left TKA Plan: PT/ OT DVT proph- ASA D/C planning- [facility] tomorrow As per medicine. Inhouse Planning Pain Management: Celebrex, Ultram, Morphine, PO Tylenol, Oxy IR DVT Prophylaxis: TEDs, SCDs, ASA Discharge Planning Discharge Planning: rehab hospital Pain Management: Celebrex, PO Tylenol, Oxy IR DVT Prophylaxis: TEDs, ASA Therapy: Physical Therapy, Occupational Therapy
[2017-05-23 07:48] VITALS: BP 114/77; PULSE 67; TEMP 36.6; O2SAT 95
[2017-05-23] MEDS: DOCUSATE SODIUM 100 MG CAP PO SCH ×2 (09:00→20:41)
[2017-05-23] MEDS: FERROUS GLUCONATE 324 MG TAB PO SCH ×3 (09:03→18:20)
[2017-05-23] MEDS: ASPIRIN 81 MG ECTAB PO SCH ×2 (09:04→20:41)
[2017-05-23] MEDS: CeleBREX 200 MG CAP PO SCH ×2 (09:04→20:42)
[2017-05-23] MEDS: LACTOBACILLUS ACIDOPHILUS (FLORANEX) TAB PO SCH (09:05)
[2017-05-23] MEDS: MULTIVITAMIN TAB PO SCH (09:05)
[2017-05-23] MEDS: PANTOprazole SOD 40 MG TAB PO SCH (09:05)
[2017-05-23] MEDS: LISINOPRIL 5 MG TAB PO SCH (09:06)
[2017-05-23] MEDS: SERTRALINE HCL 50 MG TAB PO SCH (09:06)
[2017-05-23 15:04] VITALS: BP 98/66; PULSE 68; TEMP 36.7; O2SAT 94
--- NOTE | 2017-05-23 16:51 | Progress Note ---
Internal Med Progress Note Date of Service: May 23, 2017. Provider Documentation: SUBJECTIVE: resting comfortably had therapy today having some pain but controlled with pain meds no sob awaiting placement OBJECTIVE: Vital Signs-as noted below Exam: General-alert and awake. not in distress ENT-normal hearing Neck-no neck masses supple Lungs-cta b/l no wheezing or crackles Heart-s1 and s2 heard regular rate and rhythm no murmurs Abdomen-soft bowel sounds present non tender no distension Extremities-no erythema s/p left TKA Neuro-alert and awake moves extremities Lab data as noted below. ASSESSMENT & PLAN: S/P LEFT TKA POD #2by Dr. Castro post op management as per ortho. HYPERTENSION BP stable on lisinopril ASTHMA stable on home inhaler DEPRESSION/ ANXIETY stable on Zoloft, Xanax PRN GERD on PPI DVT PROPHYLAXIS Per ortho DISPOSITION per ortho Vital Signs: Date Time Temp Pulse Resp B/P (MAP) Pulse Ox O2 Delivery O2 Flow Rate FiO2 05/23/17 15:04 36.7 68 18 98/66 (77) 94 Room Air 05/23/17 07:48 36.6 67 18 114/77 (89) 95 Room Air 05/23/17 07:25 Room Air 05/23/17 00:15 Room Air 05/22/17 23:26 36.6 71 16 128/79 (95) 95 Room Air
[2017-05-23 19:50] VITALS: BP 125/79
[2017-05-23] MEDS: SENNA 8.6 MG TAB PO SCH (20:42)
[2017-05-23 22:58] VITALS: BP 121/80; PULSE 90; TEMP 36.8; O2SAT 94
[2017-05-24] MEDS: ACETAMINOPHEN 500 MG TAB PO SCH (05:56)
[2017-05-24 07:09] VITALS: BP 102/60; PULSE 75; TEMP 36.7; O2SAT 92
--- NOTE | 2017-05-24 07:37 | Orthopedic Progress Note ---
Orthopedic Progress Note Date of Service May 24, 2017. Subjective Post OP Day: 3 Reports: feeling well, pain controlled w PO medications, Denies: complaints, chest pain, SOB, nausea / vomiting, light headedness, calf pain Objective calves soft nontender, N/V intact, capillary refill less than 2 sec., incision C /D/I, A&O x3, toes mobile Date Time Temp Pulse Resp B/P (MAP) Pulse Ox O2 Delivery O2 Flow Rate FiO2 05/24/17 07:09 36.7 75 18 102/60 (74) 92 Room Air 05/24/17 00:10 Room Air 05/23/17 22:58 36.8 90 17 121/80 (94) 94 Room Air 05/23/17 20:00 Room Air 05/23/17 19:50 125/79 (94) 05/23/17 15:04 36.7 68 18 98/66 (77) 94 Room Air 05/23/17 07:48 36.6 67 18 114/77 (89) 95 Room Air Assessment & Plan Assessment: POD #3, Left TKA Plan: PT/ OT DVT proph- ASA D/C planning- [facility] today As per medicine. Inhouse Planning Pain Management: Celebrex, Ultram, Morphine, PO Tylenol, Oxy IR DVT Prophylaxis: TEDs, SCDs, ASA Discharge Planning Discharge Planning: rehab hospital Pain Management: Celebrex, PO Tylenol, Oxy IR DVT Prophylaxis: TEDs, ASA Therapy: Physical Therapy, Occupational Therapy
[2017-05-24] MEDS ORDERED: MISCCAP80 PO (07:40)
[2017-05-24] MEDS ORDERED: Levalbuterol INH (07:40)
[2017-05-24] MEDS ORDERED: PRT40 PO (07:40)
[2017-05-24] MEDS ORDERED: CLB200 PO (07:40)
[2017-05-24] MEDS ORDERED: ALPR-411 PO (07:40)
[2017-05-24] MEDS ORDERED: RXC5 PO (07:40)
[2017-05-24] MEDS ORDERED: ASPEC81 PO (07:40)
[2017-05-24] MEDS ORDERED: LISI-729 PO (07:40)
[2017-05-24] MEDS ORDERED: FRRG PO (07:40)
[2017-05-24] MEDS ORDERED: SERT100T PO (07:40)
[2017-05-24] MEDS ORDERED: MULT-506 PO (07:40)
[2017-05-24] MEDS ORDERED: ACET-24 PO (07:40)
--- NOTE | 2017-05-24 07:42 | Discharge Instructions ---
Discharge Instructions Date of Service May 24, 2017. Admission Reason for Admission: Left Knee Degenerative Joint Disease Discharge Discharge Diagnosis / Problem: Left TKA Discharge Goals Goal(s): Improve function Activity Recommendations Activity Level: Assistance Required . Additional Information Patient informed of condition: Yes Advance Directives: Yes DNR: No Level of Care: Skilled Communicable Disease: No Prognosis: Improving [place] Rosario Catheter: No Instructions / Follow-Up Instructions / Follow-Up ACTIVITY RECOMMENDATIONS: SELF CARE INSTRUCTIONS AFTER TOTAL KNEE REPLACEMENT A. You may need to continue a physical therapy program after discharge from the hospital. There are several options available to you. Your doctor will assist you in selecting the best one for you. 1. An out-patient facility 2 to 3 times a week for therapy or home therapy. 2. Continue working on all exercises taught to you in the hospital. Your goals should be to increase bending of your knee to 90 degrees and beyond and to fully straighten your knee. B. You may progress at your own pace from walking with a walker or crutches to a cane; then to no assistive devices. C. Make walking a part of your daily routine. Be up as much as comfortable with rest periods throughout the day. Rest with leg elevation is very important. Use the ice wrap frequently for the first 3-4 weeks. D. There are no restrictions on activities. You may ride in a car, shop, participate in ice grinder and all social activities. E. Wear the long elastic stockings (MANDY hose) 20 hours a day for 2 weeks after surgery. They can be removed several times a day for laundering and for a bath. F. You may shower, no tub baths until cleared by your doctor. SPECIAL CARE INSTRUCTIONS: VERY IMPORTANT TO READ AND REVIEW A. There are a few signs you need to watch for after you are home. Call [facility] if you notice any of the followin. Increased severe knee pain. Some pain is expected especially when you exercise. 2. Increased swelling in your leg or knee; pain or swelling of the calf muscle in either lower leg. 3. Any fluid drainage from the incision. 4. Shortness of breath or chest pain. B. Please call [facility] at if you have any concerns or questions about your operation or recovery. The doctor or his nurse will return your call promptly. C. You must take antibiotics before dental work, bladder, bowel or other surgery. Your doctor will provide you with a permanent care to carry describing this precaution. IMPORTANT: * REMEMBER TO TAKE ASPIRIN, 81 MG, TWICE DAILY FOR 4 WEEKS UNLESS OTHERWISE DIRECTED. THIS IS YOUR BLOOD THINNER. * HIGH RISK PATIENTS MAY BE PRESCRIBED A STRONGER BLOOD THINNER. THIS WILL BE PROVIDED AT DISCHARGE. * CALL IF INCREASED PAIN, REDNESS, DRAINAGE OR FEVER GREATER THAT 101. * WEAR MANDY HOSE 20 HOURS PER DAY FOR 2 WEEKS. * YOU MAY HAVE A LARGE BAND-AID LIKE DRESSING (SILVERON). THIS WILL REMAIN ON YOUR INCISION FOR 7 DAYS, THEN CAN BE REMOVED. IF INCISION IS LEAKING THROUGH DRESSING, CALL THE OFFICE . FOLLOW UP VISIT: If appointment is not already scheduled: Please call [facility] to make a follow-up appointment for 2 weeks after your surgery at . Current Hospital Diet Patient's current hospital diet: Regular Diet Discharge Diet Recommended Diet: Regular Diet Procedures Procedures Performed: Left total knee arthroplasty, cemented Pending Studies Studies pending at discharge: no Laboratory Results Hemoglobin A1c Test 04/22/17 14:00 Range/Units Estimated Average Glucose 114 mg/dl Hemoglobin A1c 5.6 4.5-5.6 % Medical Emergencies . Who to Call and When: Medical Emergencies: If at any time you feel your situation is an emergency, please call 911 immediately. . Non-Emergent Contact Non-Emergency issues call your: Primary Care Provider . . "Provider Documentation" section prepared by Ricardo Barros. . Core Measure Problem Core Measures: VTE VTE Core Measures Date of VTE Diagnosis: May 24, 2017 Time of VTE Diagnosis: 07:41 Reason no anticoag overlap I/P: Treatment provided - N/A Reason no anticoag overlap @DC: Treatment provided - N/A [place] Drug Monitoring Program Search Results: patient reviewed within database, no issues identified
[2017-05-24] MEDS: FERROUS GLUCONATE 324 MG TAB PO SCH (08:26)
[2017-05-24] MEDS: ASPIRIN 81 MG ECTAB PO SCH (08:26)
[2017-05-24] MEDS: DOCUSATE SODIUM 100 MG CAP PO SCH (08:27)
[2017-05-24] MEDS: LACTOBACILLUS ACIDOPHILUS (FLORANEX) TAB PO SCH (08:28)
[2017-05-24] MEDS: CeleBREX 200 MG CAP PO SCH (08:28)
[2017-05-24] MEDS: PANTOprazole SOD 40 MG TAB PO SCH (08:28)
[2017-05-24] MEDS: MULTIVITAMIN TAB PO SCH (08:28)
[2017-05-24] MEDS: OXYCODONE HCL IR 5 MG TAB (IMMEDIATE RELEASE) PO PRN ×2 (08:31→10:44)
[2017-05-24] MEDS: LISINOPRIL 5 MG TAB PO SCH (08:33)
[2017-05-24] MEDS: SERTRALINE HCL 50 MG TAB PO SCH (08:33)
[2017-05-24 10:51] VITALS: BP 102/60; PULSE 75; TEMP 36.7; O2SAT 92
--- NOTE | 2017-05-27 14:13 | Discharge Summary ---
Orthopedic Discharge Summary Admission Date/Reason May 21, 2017 at 11:20 Left Knee Degenerative Joint Disease. Discharge Date/Disposition May 24, 2017 alf facility Diagnosis Principal Diagnosis: Left Knee Djd Secondary Diagnoses/Problems: Heart murmur, hypertension, hypercholesterolemia, irregular heartbeat, asthma, sleep apnea, anxiety, osteoarthritis, spine problems, neck problems, sciatica, acid reflux, obesity, and dental issues. She has a history of cervical and skin cancer Procedure(s) Performed Left TKA Consultations Arlin Vera PA-C Palepu, Rajendra P., MD Medication Reconciliation New Medications: Acetaminophen (Sb Non-Aspirin Extra Stre) 500 Mg Tab 1000 MG PO Q8H for 21 Days, #126 TAB Aspirin (Aspirin EC Low Dose) 81 Mg Ectab 81 MG PO BID for 30 Days, #60 Celecoxib (Celebrex) 200 Mg Cap 200 MG PO BID for 30 Days, #60 CAP Ferrous Gluconate (Ferrous Gluconate) 324 Mg Tab 324 MG PO TIDM for 10 Days, #30 TAB Oxycodone HCl (Oxycodone HCl) 5 Mg Tab 5-10 MG PO Q4H PRN for Pain, #60 TAB Pantoprazole (Pantoprazole Sodium) 40 Mg Tab 40 MG PO QAM for 10 Days, #10 TAB [Levalbuterol] () 1 INH 1 PUFFS INH Q4H PRN for wheeezing for 10 Days, #1 Continued Medications: Alprazolam (Xanax) 0.5 Mg Tab 0.5 MG PO DAILY PRN for Anxiety for 10 Days, #10 0 Refills (This prescription has been renewed) Lisinopril (Prinivil) 5 Mg Tab 5 MG PO QAM for 10 Days, #10 TAB (This prescription has been renewed) Multivitamin (Multivitamin) Tab 1 TAB PO DAILY for 10 Days, #10 TAB (This prescription has been renewed) Probiotic Product (Probiotic) 1 Cap Cap 2 TAB PO QAM for 10 Days, #20 (This prescription has been renewed) Sertraline Hcl (Zoloft) 100 Mg Tab 150 MG PO QAM for 10 Days, #15 TAB (This prescription has been renewed) Discontinued Medications: Acetaminophen (Tylenol) 500 Mg Tab 1000 MG PO PRN, TAB Celecoxib (CeleBREX) 200 Mg Cap 200 MG PO PRN, CAP Ibuprofen (Advil) 200 Mg Tab 400 MG PO PRN, TAB Levalbuterol Tartrate (Xopenex Hfa) Aer 1 PUFF INH Q4H PRN for wheeezing Omeprazole (Prilosec) 40 Mg Cap 40 MG PO QAM, CAP Tramadol (Ultram) 50 Mg Tab 50 MG PO Q6H PRN for Pain, TAB [Diclofenac-Misopro] () 1 TAB PO PRN DICLOFENAC-MISOPROSTOL 75-0.2 MG [Turmeric] () 1 TAB PO QAM Admission Physical Exam As per Admitting History & Physical. Hospital Course The Patient had an uneventful hospital course. Labs remained stable- lowest hemoglobin recorded: 11.7 . Pain controlled on oral medications. Participated in PT with ambulation distance of 500 feet. ROM of operative knee reached 101 degrees. Drainage output totaled 645 cc prior to discontinuation. Patient did have a reported bowel movement. Incision remained clean/dry/intact. DVT prophylaxis with Aspirin EC 81mg BID x 30 days/Lizandro stockings. Patient discharged to [facility] in stable condition. Please refer to daily progress notes for further details. Discharge Instructions Please refer to the electronic Patient Visit Report (Discharge Instructions) for additional information.
== END 2017-05-24 11:07 | DRG 470 ==
LOC: C.ACU 09:45 → C.3E 11:20 → ENRESERV 15:51
PROVIDERS: ADMIT Orthopaedic Surgery Sports Medicine; ATTEND Orthopaedic Surgery Sports Medicine
PROC: 0SRD0J9 Replacement of Left Knee Joint with Synthetic Substitute, Cemented, Open Approach (ICD-10-PCS; principal; 2017-05-21 11:30)
DX: M17.12 Unilateral primary osteoarthritis, left knee (principal); I10 Essential (primary) hypertension; E78.00 Pure hypercholesterolemia, unspecified; K21.9 Gastro-esophageal reflux disease without esophagitis; J45.909 Unspecified asthma, uncomplicated; F32.9 Major depressive disorder, single episode, unspecified; F41.9 Anxiety disorder, unspecified; E66.9 Obesity, unspecified; Z79.899 Other long term (current) drug therapy; Z85.41 Personal history of malignant neoplasm of cervix uteri; Z85.828 Personal history of other malignant neoplasm of skin; Z68.27 Body mass index [BMI] 27.0-27.9, adult; Z87.891 Personal history of nicotine dependence; Z80.1 Family history of malignant neoplasm of trachea, bronchus and lung

== ENCOUNTER → 2018-01-14 | Outpatient (CLI) | payer OTHER ==
[~2018-01-14] MED LIST changes: -ACET-1256 PO; +ACET-24 PO; -ACETAMINOPHEN 500 MG TAB PO SCH; +ASPI-320 PO; -BUPIVACAINE 0.25% 30 ML VIAL ONE; -BUPIVACAINE 0.5 % 5 MG/1 ML PF 10ML VIAL ONE; -CEFAZOLIN 2000 MG/60 ML D5W 60 ML IV SCH; -CLB/200 PO; +CLB200 PO; -CeleBREX 200 MG CAP PO SCH; -DEXAMETHASONE 4 MG TAB PO SCH; -DICLOFENAC PO; -FAMOTIDINE 20 MG TAB PO SCH; +FRRG PO; -GABAPENTIN 300 MG CAP PO SCH; -IBUP-1050 PO; -LACTATED RINGER'S 1000ML 1,000 ML IV SCH; -LACTATED RINGER'S 1000ML 500 ML IV ONE; -LACTATED RINGER'S 1000ML IV SCH; +Levalbuterol INH; -METOCLOPRAMIDE HCL 10 MG TAB PO SCH; -MISOPROSTOL PO; -OMEP40CA36 PO; +PRT40 PO; -ROPIVACAINE 5MG/ML 30 ML 150 MG, BUPIVACAINE/EPINEPHR 0.5% MPF 30 ML, KETOROLAC TROMETH... INFIL SCH; +RXC5 PO; -TURMERIC PO; -XPNIN INH
--- NOTE | 2018-01-15 14:17 | MAMMOGRAPHY REPORT ---
BILATERAL DIGITAL SCREENING MAMMOGRAM TOMOSYNTHESIS WITH CAD: 01/14/2018 CLINICAL HISTORY: Routine screening. Patient has no complaints. TECHNIQUE: Breast tomosynthesis in addition to standard 2D mammography was performed. Current study was also evaluated with a Computer Aided Detection (CAD) system. COMPARISON: Comparison is made to exams dated: 09/30/2016 mammogram, 02/01/2015 mammogram, 09/02/2013 mando mogram, 08/26/2013 mammogram, 06/09/2012 mammogram - [facility], and 04/14/2007. BREAST COMPOSITION: The tissue of both breasts is almost entirely fatty. FINDINGS: No suspicious masses, calcifications, or areas of architectural distortion are noted in ei ther breast. There has been no significant interval change compared to prior exams. Scattered bilater al benign-appearing calcifications are not significantly changed. IMPRESSION: ACR BI-RADS CATEGORY 2: BENIGN There is no mammographic evidence of malignancy. A 1 year screening mammogram is recommended. The pa tient will receive written notification of the results. Approximately 10% of breast cancers are not detected with mammography. A negative mammographic report should not delay biopsy if a clinically suggestive mass is present. Dee Dee Marie M.D. ah/:01/14/2018 14:13:25 Recreational Assistant: Mimi TREJO(R)(M), [facility] letter sent: Normal 1/2 BI-RADS Code: ACR BI-RADS Category 2: Benign
== END | disposition home or self-care (01) ==
LOC: C.MAMM 12:16
PROVIDERS: ATTEND Obstetrics & Gynecology
DX: Z12.31 Encounter for screening mammogram for malignant neoplasm of breast (principal)

== ENCOUNTER → 2018-04-14 | Outpatient (CLI) | payer OTHER ==
[~2018-04-14] MED LIST changes: +PANT1TAB4 PO; -PRT40 PO
--- NOTE | 2018-04-14 11:46 | DIAGNOSTIC IMAGING REPORT ---
(CHEST) THORAX WITHOUT CLINICAL HISTORY: R93.8 Abnormal finding on [id number] former smoker COMPARISON STUDY: Chest x-ray dated 04/22/2017, CT scan dated 04/22/2012 CT DOSE: 544.36 mGycm TECHNIQUE: CT of the thorax was performed from the thoracic inlet to the lung bases. Images are reviewed in the axial, sagittal, and coronal planes. IV contrast was not administered for this examination. A dose lowering technique was utilized adhering to the principles of ALARA. FINDINGS: Thyroid: Imaged portions of the thyroid gland are normal in appearance. Thoracic aorta: The thoracic aorta is normal in course and caliber, noting standard 3 vessel arch anatomy. Heart: The heart is normal in size and configuration, without pericardial effusion. There is enlargement of the main pulmonary arteries. Lungs and pleural spaces: No pleural effusions are visualized. There is no focal pulmonary consolidation. There are few scattered micronodules. There is a 4 mm groundglass right lower lobe pulmonary nodule as visualized in image #[id number]. Current recommendations indicate a 12 month follow-up is optional Mediastinum: There is no mediastinal lymphadenopathy. Aliya: There is no evidence of pathologic hilar lymphadenopathy Axilla: Clear. Upper abdomen: There is a punctate cortical calcification within the left kidney. The gallbladder surgically absent Skeletal structures: There are no lytic or blastic osseous lesions. IMPRESSION: 1. No evidence of focal pulmonary consolidation 2. No evidence of pathologic adenopathy 3. Enlargement of the main pulmonary arteries 4. 4 mm right lower lobe groundglass pulmonary nodule. In addition there are few tiny micronodules. Current recommendations indicate a 12 month follow-up is optional Electronically signed by: Dirk Hernandez M.D. 04/14/2018 11:45 AM Dictated Date/Time: 04/14/2018 11:37 AM
== END | disposition home or self-care (01) ==
LOC: C.CTS 11:24
PROVIDERS: ATTEND Physician Assistant
DX: R93.8 Abnormal findings on diagnostic imaging of other specified body structures (principal); Z87.891 Personal history of nicotine dependence; R91.8 Other nonspecific abnormal finding of lung field; I28.8 Other diseases of pulmonary vessels